=== PATIENT | female | born 1955 | race Caucasian/White ===

== ENCOUNTER 2016-10-21 00:03 | Emergency (ER) | payer OTHER ==
[~2016-10-21] VITALS: Ht 152.4 cm; Wt 63.6 kg
[~2016-10-21 00:03] MED LIST: ASPI81TA2 PO; ATOR80TA76 PO; CIPR-278 PO; METF500T4 PO; METR500 PO; OSCD250 PO; PSYL1PAC11 PO; VITAD1000 PO
[2016-10-21 00:12] LABS: GLUCOSE,POINT OF CARE 209 MG/DL (70-110)
[2016-10-21] MEDS ORDERED: HYDROCODONE/ACETAMINOPHEN 5-325 MG TABLET PO ONE (00:45)
[2016-10-21] MEDS ORDERED: ONDANSETRON HCL 4 MG/2 ML VIAL IM ONE (03:00)
[2016-10-21] MEDS ORDERED: MORPHINE SULFATE 4 MG/ML SYRINGE IM ONE (03:00)
[2016-10-21 03:30] VITALS: BP 132/74
== END 2016-10-21 03:52 | disposition home or self-care (01) ==
LOC: EMS 00:05
DX: M51.36 Other intervertebral disc degeneration, lumbar region (principal); M53.3 Sacrococcygeal disorders, not elsewhere classified; E11.9 Type 2 diabetes mellitus without complications; E78.00 Pure hypercholesterolemia, unspecified; I10 Essential (primary) hypertension; Z79.82 Long term (current) use of aspirin; Z88.1 Allergy status to other antibiotic agents; Z91.040 Latex allergy status
CPT/HCPCS: 72100; 72202; 82962; 96372; 99284; J2270; J2405

== ENCOUNTER 2022-02-09 11:29 | Emergency (ER) | payer MEDICARE, OTHER ==
[~2022-02-09] VITALS: Ht 154.9 cm; Wt 65.5 kg
[~2022-02-09 11:29] MED LIST changes: -ASPI81TA2 PO; +ASPI81TA39 PO; +ATOR-2 PO; -ATOR80TA76 PO; +CHOL100018 PO; -CIPR-278 PO; +METF-444 PO; -METF500T4 PO; -METR500 PO; -VITAD1000 PO
[2022-02-09 13:40] VITALS: BP 136/69
== END 2022-02-09 13:48 | disposition home or self-care (01) ==
LOC: EMS 11:36
DX: Z00.00 Encounter for general adult medical examination without abnormal findings (principal); E11.9 Type 2 diabetes mellitus without complications; E78.00 Pure hypercholesterolemia, unspecified; I10 Essential (primary) hypertension; Z90.49 Acquired absence of other specified parts of digestive tract; Z90.710 Acquired absence of both cervix and uterus
CPT/HCPCS: 82962; 99281